=== PATIENT | male | born 1985 | race Caucasian/White ===

== ENCOUNTER 2022-03-06 15:26 | Emergency (ER) | payer BC, SELFPAY ==
[2022-03-06 15:37] VITALS: BP 158/84; PULSE 74; RESP 16; TEMP 36.6; O2SAT 98
--- NOTE | 2022-03-06 15:53 | ED.DENTAL ---
HPI - Dental/Oral General Chief complaint: Dental/Oral Stated complaint: Toothache Time Seen by Provider: 03/06/22 15:54 Source: patient Mode of arrival: ambulatory History of Present Illness HPI Narrative: 37 y/o male presented for c/o recurrent dental abscess left upper gum. Onset 3 days. Rates pain 4/10 and improves to 1/10 with ibuprofen. Denies nausea, vomiting, fever or chills. Endorses he is aware he needs to have surgery to remove wisdom tooth. States this recurrent abscess has resulted in a root canal in the past. Taking Tylenol and ibuprofen. States Bactrim or clindamycin work better than PCN. Scheduled with dentist in 2 weeks. MD Complaint: tooth pain Related Data Home Medications Medication Instructions Recorded Confirmed carvedilol 6.25 mg tablet 6.25 mg PO BID 03/06/22 03/06/22 losartan 1 tablet PO DAILY 03/06/22 03/06/22 Allergies Allergy/AdvReac Type Severity Reaction Status Date / Time No Known Allergies Allergy Verified 03/06/22 15:54 Review of Systems Review of Systems: CONSTITUTIONAL: Denies body aches, fever, chills ENT: Denies rhinorrhea, congestion, sore throat, or otalgia. Reports dental pain CARDIOVASCULAR: Denies chest pain, palpitations RESPIRATORY: Denies cough or dyspnea. SKIN: Denies rash, itching, or wounds. MUSCULOSKELETAL: Denies myalgia. NEUROLOGIC: Denies headache, numbness, tingling, or weakness. PMFSH Comments At time of signature, I have reviewed and agree with nursing past medical, surgical, social and family history unless otherwise noted. Please see nursing chart for further information. There is no relevant family history pertinent to the presenting complaint Exam Narrative: GENERAL: Appears in pain; no acute distress. HEAD: Normocephalic, atraumatic. EYES: EOMI. No redness or drainage. Conjunctivae normal. ENT: Dental pain location of the medial aspect of #16; no active drainage; Mucous membranes pink and moist. TMs normal bilaterally. No facial redness/swelling. NECK: Normal AROM. No lymphadenopathy. CHEST: Clear to auscultation. HEART: Regular rate and rhythm. No murmur appreciated. SKIN: Warm, dry, no rash. Normal skin turgor. NEURO: Alert and oriented x3. Course Course Emergency Course: Patient is aware of diagnosis, understands and agrees to treatment plan. Anticipatory guidance given. Patient agrees to follow-up as directed and is aware of reasons to seek care at the emergency department. Portions of this record may have been created with voice recognition software Level of Care: Express Care Visit Vital Signs Vital signs: Vital Signs Temperature 97.8 F 03/06/22 15:37 Pulse Rate 74 03/06/22 15:37 Respiratory Rate 16 03/06/22 15:37 Blood Pressure 158/84 H 03/06/22 15:37 Pulse Oximetry 98 03/06/22 15:37 Oxygen Delivery Room Air 03/06/22 15:37 Temperature 97.8 F 03/06/22 15:37 Pulse Rate 74 03/06/22 15:37 Respiratory Rate 16 03/06/22 15:37 Blood Pressure 158/84 H 03/06/22 15:37 Pulse Oximetry 98 03/06/22 15:37 Oxygen Delivery Room Air 03/06/22 15:37 MDM - Dental/Oral MDM Narrative Medical decision making narrative: Patients pain and complaint with physical findings are consistent with dental abscess. There are no focal signs of space occupying lesions that are compromising to the airway;No soft palate edema. Patient is non-toxic appearing. Patient is without trismus or drooling and able to swallow secretions. Patient is felt appropriate for discharge home with dental follow up. He is scheduled 2 weeks. Rx clindamycin. Differential Diagnosis Differential diagnosis: Likely gingival abscess, dental caries, toothache, dental abscess and aphthous ulcer Discharge Plan Discharge Clinical Impression: Dental abscess Patient Disposition: Home, Self-Care Condition: Stable Additional Instructions: Take antibiotic as directed (recommend starting probiotic) May apply heat or ice to the f
== END 2022-03-06 16:09 | disposition home or self-care (01) ==
PROVIDERS: Emergency Provider Nurse Practitioner Family; PCP Family Medicine
DX: K04.7 Periapical abscess without sinus (principal); R01.1 Cardiac murmur, unspecified
CPT/HCPCS: 99213; G0463